=== PATIENT | female | born 1980 | race Caucasian/White ===

== ENCOUNTER 2017-02-23 07:28 | Emergency (ER) | payer OTHER ==
[2017-02-23] MEDS ORDERED: fentaNYL PF 100 MCG/2 ML VIAL IV PRN (08:00)
[2017-02-23] MEDS ORDERED: IV NORMAL SALINE 1,000ML 1,000 ML IV SCH (08:30)
[2017-02-23] MEDS ORDERED: ONDANSETRON PF 4 MG/2 ML VIAL. IV ONE (08:30)
--- NOTE | 2017-02-23 08:36 | PHYS DOC ---
Past History Past Medical History: Ovarian Cyst, Other Past Surgical History: Cholecystectomy, Other Smoking: Greater than 1 pack/day Alcohol Use: None Drug Use: None Adult General Chief Complaint Chief Complaint: ABDOMINAL PAIN HPI HPI Patient is a 36 year old female who presents with plain of right lower quadrant abdominal pain. Patient states her symptoms started this morning at approximately 0600. Patient states that she got sudden sharp pain in the right lower quadrant. Patient states that she feels pain into her right thigh associated with her symptoms. Patient denies previous history of similar symptoms. Patient states that her last menstrual period was approximately one week ago patient has had history of cholecystectomy but denies history of appendectomy. Patient has had associated nausea but denies vomiting, diarrhea, or fever. She has not taken any medications to help with her symptoms. Patient currently rates her pain as 8 out of 10. Review of Systems Review of Systems Constitutional: Denies fever or chills [] Eyes: Denies change in visual acuity, redness, or eye pain [] HENT: Denies nasal congestion or sore throat [] Respiratory: Denies cough or shortness of breath [] Cardiovascular: Denies chest pain or edema[] GI: Abdominal pain, nausea, denies vomiting, bloody stools or diarrhea [] : Denies abnormal vaginal bleeding, vaginal discharge, dysuria or hematuria [] Musculoskeletal: Denies back pain or joint pain [] Integument: Denies rash or skin lesions [] Neurologic: Denies headache, focal weakness or sensory changes [] Current Medications Current Medications Current Medications Medications (Trade) Dose Ordered Sig/Jesus Start Time Stop Time Status Last Admin Dose Admin Fentanyl Citrate (Fentanyl 2ml Vial) 50 mcg PRN Q15MIN PRN 02/23/17 08:00 02/24/17 07:59 Ondansetron HCl (Zofran) 4 mg 1X ONCE 02/23/17 08:30 02/23/17 08:31 DC Sodium Chloride 1,000 ml @ 1,000 mls/hr Q1H 02/23/17 08:30 02/23/17 09:29 Allergies Allergies Allergies Coded Allergies Type Severity Reaction Last Updated Verified diphenhydramine Allergy Mild 06/18/13 Yes latex Allergy 06/18/13 Yes promethazine Allergy 06/18/13 Yes red dye Allergy 06/18/13 Yes Physical Exam Physical Exam Constitutional: Alert, afebrile, appears in moderate discomfort. [] HENT: Normocephalic, atraumatic, bilateral external ears normal, oropharynx moist, no oral exudates, nose normal. [] Eyes: PERRLA, EOMI, conjunctiva normal, no discharge. [] Neck: Normal range of motion, no tenderness, supple, no stridor. [] Cardiovascular:Heart rate regular rhythm, no murmur [] Lungs & Thorax: Bilateral breath sounds clear to auscultation [] Abdomen: Bowel sounds normal, soft, suprapubic and right lower quadrant tenderness to palpation with guarding, no rebound tenderness, no masses, no pulsatile masses. [] Skin: Warm, dry, no erythema, no rash. [] Back: No tenderness, no CVA tenderness. [] Extremities: No tenderness, no cyanosis, no clubbing, ROM intact, no edema. [] Neurologic: Alert and oriented X 3, normal motor function, normal sensory function, no focal deficits noted. [] Current Patient Data Vital Signs Vital Signs Date Time Temp Pulse Resp B/P (MAP) Pulse Ox O2 Delivery O2 Flow Rate FiO2 02/23/17 07:28 97.5 75 16 99 Room Air EKG EKG Not performed[] Radiology/Procedures Radiology/[place] [address] IMAGING REPORT Signed PATIENT: AVELINO CHANDLER ACCOUNT: [id number] : 1980 LOCATION: ER AGE: 36 SEX: F EXAM STATUS: REG ER ORD. PHYSICIAN: KAMRAN MAJOR MD REASON: severe right lower quadrant and pelvic pain PROCEDURE: US PELVIS W/TV Ultrasound pelvis 02/23/2017 Indication: Right lower quadrant abdominal pain Comparison: None available Technique: Sonographic evaluation of the pelvis was performed utilizing transabdominal and transvaginal imaging. Grayscale, color Doppler and spectral waveform analysis was performed. Findings: The uterus measures 9.5 x 5.6 x 4.2 cm (length by with by AP dimension). Endometrium is within normal limits measuring up to 3 mm. Simple appearing nabothian cysts are present. No suspicious uterine masses are identified. Right ovary measures 2.4 x 1.9 x 2.7 cm. Left ovary measures 3.1 x 2.3 x 2.2 cm. Follicular changes are noted within the ovaries measuring up to 1.3 cm on the right and 1.3 cm in the left. Arterial and venous waveform was present in the ovaries bilaterally the time of imaging. No free fluid is identified within the pelvis. Results portions of the urinary bladder within normal limits. Impression: 1. Perfusion is noted to the ovaries bilaterally time of imaging. Normal ovaries are present. 2. No suspicious uterine masses are identified. 3. Simple appearing nabothian cysts are present. DICTATED AND SIGNED BY: RADHA WINN MD DATE: 02/23/17954 CC: KAMRAN MAJOR MD; JERILYN WATTERS MD ~ [place] [address] IMAGING REPORT Signed PATIENT: AVELINO CHANDLER ACCOUNT: [id number] : 1980 LOCATION: ER AGE: 36 SEX: F EXAM STATUS: REG ER ORD. PHYSICIAN: KAMRAN MAJOR MD REASON: nausea, right lower quadrant pain PROCEDURE: CT ABD PELV W/ IV CONTRST ONLY CT of the abdomen and pelvis with contrast, 02/23/2017: History: Right lower quadrant pain, nausea Multidetector CT imaging was performed following an IV bolus injection of iodinated contrast material. No oral contrast material was administered for the study. The gallbladder is surgically absent. There is a 9 mm low-density lesion in the superior aspect of the right lobe of the liver. It is likely a hemangioma or cyst, although it is too small to definitively characterize. No other hepatic lesion is seen. The pancreas is unremarkable. The spleen is of normal size. Two tiny intrarenal calculi are present in the upper pole of the right kidney. The largest of these measures 2 mm. There is no evidence of hydronephrosis. No ureteral calculus is identified. The partially filled urinary bladder is unremarkable. There is mild aortoiliac calcific plaquing without evidence of aneurysm. No abdominal or pelvic adenopathy is seen. The bowel loops are not dilated. A portion of the appendix is visualized and it is unremarkable. No pericecal inflammatory process is seen. No free air or significant free fluid is evident in the abdomen or pelvis. IMPRESSION: 1. Small nonobstructing right intrarenal calculi. 2. Single small hepatic lesion, too small to definitively characterize. Sonographic evaluation may be helpful. 3. No CT evidence of acute appendicitis. PQRS Compliance Statement: One or more of the following individualized dose reduction techniques were utilized for this examination: 1. Automated exposure control 2. Adjustment of the mA and/or kV according to patient size 3. Use of iterative reconstruction technique DICTATED AND SIGNED BY: DAREK PENA MD DATE: 02/23/17 1110 CC: KAMRAN MAJOR MD; JERILYN WATTERS MD ~ [] Course & Med Decision Making Course & Med Decision Making Pertinent Labs and Imaging studies reviewed. (See chart for details) Patient was started on IV fluids. The patient was offered fentanyl for pain but declined stating that her pain was improving on its own. The patient's imaging showed no evidence of appendicitis in no acute ovarian pathology. Etiology of patient's symptoms not definitely identified, however there does not appear to be an acute surgical process at this time. The patient is feeling better after treatment. The patient is appropriate for outpatient discharge. Advise follow- up in 2 days a primary doctor. I did speak with the patient regarding her CT findings and recommended repeat imaging in the next 2-3 weeks. Advised return to the emergency department for any worsening symptoms. Patient voiced understanding and in agreement with treatment plan. Dragon Disclaimer Dragon Disclaimer This chart was dictated in whole or in part using Voice Recognition software in a busy, high-work load, and often noisy Emergency Department environment. It may contain unintended and wholly unrecognized errors or omissions. Departure Departure: Impression: Primary Impression: Abdominal pain Disposition: 01 HOME, SELF-CARE Condition: IMPROVED Referrals: JERILYN WATTERS MD (PCP) Patient Instructions: Abdominal Pain Additional Instructions: Your emergency department workup was negative for any acute surgical cause for your symptoms today. It is recommended that she follow-up with your primary doctor in the next 2 days for reevaluation. Please return to the emergency department if you have worsening pain, or if you develop fever, vomiting, bloody stools, or any other worrisome symptoms. Scripts Ondansetron (ZOFRAN ODT) 4 Mg Tab.rapdis 1 TAB SL Q8HRS Y for NAUSEA/VOMITING, #15 TAB Prov: KAMRAN MAJOR MD 02/23/17 Problem Qualifiers Primary Impression: Abdominal pain Abdominal location: right lower quadrant Qualified Codes: R10.31 - Right lower quadrant pain KAMRAN MAJOR MD Feb 23, 2017 08:36
[2017-02-23 08:39] LABS: BASO # 0.1 x10^3/uL (0.0-0.2); BASO % 1 % (0-3); EOS # 0.3 x10^3/uL (0.0-0.7); EOS % 4 % (0-3); HEMOGLOBIN 14.7 g/dL (12.0-15.5); LYMPH # 2.4 x10^3/uL (1.0-4.8); LYMPH % 33 % (24-48); MEAN CORPUSCULAR HEMOGLOBIN 32 pg (25-35); MEAN CORPUSCULAR HGB CONC 35 g/dL (31-37); MEAN CORPUSCULAR VOLUME 92 fL (79-100); MONO # 0.6 x10^3/uL (0.0-1.1); MONO % 9 % (0-9); NEUT # 3.8 x10^3uL (1.8-7.7); NEUT % 54 % (31-73); PLATELET COUNT 252 x10^3/uL (140-400); RED BLOOD COUNT 4.54 x10^6/uL (3.50-5.40); RED CELL DISTRIBUTION WIDTH 13.4 % (11.5-14.5); WHITE BLOOD COUNT 7.1 x10^3/uL (4.0-11.0)
[2017-02-23 08:52] LABS: ALBUMIN 3.5 g/dL (3.4-5.0); ALBUMIN/GLOBULIN RATIO 1.1 (1.0-1.7); CALCIUM 8.3 mg/dL (8.5-10.1); CREATININE 0.9 mg/dL (0.6-1.0); GFR 70.5; POTASSIUM 3.5 mmol/L (3.5-5.1); TOTAL BILIRUBIN 0.4 mg/dL (0.2-1.0); TOTAL PROTEIN 6.6 g/dL (6.4-8.2)
--- NOTE | 2017-02-23 10:00 | RAD ---
Ultrasound pelvis 02/23/2017 Indication: Right lower quadrant abdominal pain Comparison: None available Technique: Sonographic evaluation of the pelvis was performed utilizing transabdominal and transvaginal imaging. Grayscale, color Doppler and spectral waveform analysis was performed. Findings: The uterus measures 9.5 x 5.6 x 4.2 cm (length by with by AP dimension). Endometrium is within normal limits measuring up to 3 mm. Simple appearing nabothian cysts are present. No suspicious uterine masses are identified. Right ovary measures 2.4 x 1.9 x 2.7 cm. Left ovary measures 3.1 x 2.3 x 2.2 cm. Follicular changes are noted within the ovaries measuring up to 1.3 cm on the right and 1.3 cm in the left. Arterial and venous waveform was present in the ovaries bilaterally the time of imaging. No free fluid is identified within the pelvis. Results portions of the urinary bladder within normal limits. Impression: 1. Perfusion is noted to the ovaries bilaterally time of imaging. Normal ovaries are present. 2. No suspicious uterine masses are identified. 3. Simple appearing nabothian cysts are present.
[2017-02-23 10:31] LABS: BACTERIA,URINE FEW /HPF (0-FEW); BILIRUBIN,URINE NEG (NEG); CLARITY,URINE HAZY; COLOR,URINE STRAW; GLUCOSE,URINE NEG (NEG); NITRITE,URINE NEG (NEG); UROBILINOGEN,URINE 0.2 mg/dL (0.2 mg/dL); WBC,URINE 1.4 /HPF (0-4)
[2017-02-23 10:34] LABS: SQUAMOUS EPITHELIAL CELL,UR MOD /LPF
[2017-02-23] MEDS ORDERED: IOHEXOL 300 MG/ML 75 ML VIAL. IV ONE (10:45)
--- NOTE | 2017-02-23 11:27 | RAD ---
CT of the abdomen and pelvis with contrast, 02/23/2017: History: Right lower quadrant pain, nausea Multidetector CT imaging was performed following an IV bolus injection of iodinated contrast material. No oral contrast material was administered for the study. The gallbladder is surgically absent. There is a 9 mm low-density lesion in the superior aspect of the right lobe of the liver. It is likely a hemangioma or cyst, although it is too small to definitively characterize. No other hepatic lesion is seen. The pancreas is unremarkable. The spleen is of normal size. Two tiny intrarenal calculi are present in the upper pole of the right kidney. The largest of these measures 2 mm. There is no evidence of hydronephrosis. No ureteral calculus is identified. The partially filled urinary bladder is unremarkable. There is mild aortoiliac calcific plaquing without evidence of aneurysm. No abdominal or pelvic adenopathy is seen. The bowel loops are not dilated. A portion of the appendix is visualized and it is unremarkable. No pericecal inflammatory process is seen. No free air or significant free fluid is evident in the abdomen or pelvis. IMPRESSION: 1. Small nonobstructing right intrarenal calculi. 2. Single small hepatic lesion, too small to definitively characterize. Sonographic evaluation may be helpful. 3. No CT evidence of acute appendicitis. PQRS Compliance Statement: One or more of the following individualized dose reduction techniques were utilized for this examination: 1. Automated exposure control 2. Adjustment of the mA and/or kV according to patient size 3. Use of iterative reconstruction technique
[2017-02-23] MEDS ORDERED: ONDA4TAB10 SL (12:18)
[2017-02-23 12:25] VITALS: BP 114/68
== END 2017-02-23 12:25 | disposition home or self-care (01) ==
LOC: ER 07:28
DX: R10.31 Right lower quadrant pain (principal); R11.0 Nausea; F17.200 Nicotine dependence, unspecified, uncomplicated; Z90.49 Acquired absence of other specified parts of digestive tract; Z88.4 Allergy status to anesthetic agent; Z91.041 Radiographic dye allergy status; Z91.040 Latex allergy status
CPT/HCPCS: 36415; 74177; 76830; 76856; 80053; 81001; 81025; 83690; 85025; 96361; 96374; 99285; J2405; Q9967; J7030

== ENCOUNTER 2021-09-06 18:52 | Emergency (ER) | payer SELFPAY ==
[~2021-09-06] VITALS: Ht 165.1 cm; Wt 59.1 kg
[~2021-09-06 18:52] MED LIST: ONDA4TAB10 SL
--- NOTE | 2021-09-06 19:04 | PHYS DOC ---
Past History Past Medical History: Ovarian Cyst, Other Past Surgical History: Cholecystectomy, Other Smoking: Greater than 1 pack/day Alcohol Use: None Drug Use: None General Adult EDM: Chief Complaint: ABDOMINAL PAIN HPI: HPI: ".. I am have really bad abdomen pain " ".. Here on the Rt.. " " It is really severe sometimes.." Patient is a 41 year old female who presents with above hx and complaints of severe right flank and right abdomen pain. States the pain started today at times pain is almost incapacitating. Patient states it starts at her right flank and radiates to her groin area. Patient denies any trauma. Patient denies any vaginal discharge or dysuria. Patient does state it does feel like she has to urinate when the pain starts. No history immunosuppression. No history specific ill contacts. No history of bad food. No history of travel. Has had a cholecystectomy. Has had some history of dysmenorrhea and possible ov ju cyst. Pt. follows with Dr. Dewey. Review of Systems: Review of Systems: Constitutional: Denies fever or chills Eyes: Denies change in visual acuity HENT: Denies nasal congestion or sore throat Respiratory: Denies cough or shortness of breath Cardiovascular: Denies chest pain or edema GI: Complains of right sided abdominal pain, nausea,. Vomiting, bloody stools or diarrhea : Denies dysuria Musculoskeletal: Complains of right flank back pain Integument: Denies rash Neurologic: Denies headache, focal weakness or sensory changes Endocrine: Denies polyuria or polydipsia Lymphatic: Denies swollen glands Psychiatric: Denies depression or anxiety Family History: Family History: Noncontributory to presentation Current Medications: Current Meds: See nursing for home meds Allergies: Allergies: Allergies Coded Allergies Type Severity Reaction Last Updated Verified diphenhydramine Allergy Mild 06/18/13 Yes latex Allergy 06/18/13 Yes promethazine Allergy 06/18/13 Yes red dye Allergy 06/18/13 Yes Physical Exam: PE: Constitutional: in acute distress, non-toxic appearance. [] HENT: Normocephalic, atraumatic, bilateral external ears normal, oropharynx moist, no oral exudates, nose normal. [] Eyes: PERRLA, EOMI, conjunctiva normal, no discharge. [] Neck: Normal range of motion, no tenderness, supple, no stridor. [] Cardiovascular:Heart rate regular rhythm, no murmur [] Lungs & Thorax: Bilateral breath sounds clear to auscultation [] Abdomen: Bowel sounds decreased, soft, right flank, mid and lower right tenderness, no masses, no pulsatile masses. Distended. Mild rebound right flank. Old surgery scar Skin: Warm, dry, no erythema, no rash. [] Back: No tenderness, no CVA tenderness. [] Extremities: No tenderness, no cyanosis, no clubbing, ROM intact, no edema. No true psoas sign Neurologic: Alert and oriented X 3, normal motor function, normal sensory function, no focal deficits noted. [] Psychologic: Affect anxious, judgement normal, mood normal. [] EKG: EKG: My interpretation EKG shows a sinus rhythm at 69 bpm. No acute morphology. Time of EKG is 1931 hrs. [] Radiology/Procedures: Radiology/Procedures: [][place] [address] IMAGING REPORT Signed PATIENT: AVELINO CHANDLER ACCOUNT: [id number] : 1980 LOCATION: ER AGE: 41 SEX: F EXAM STATUS: REG ER ORD. PHYSICIAN: MARY GRACE SCRUGGS MD REASON: Severe lower abdomen pain PROCEDURE: ACUTE ABDOMEN SERIES Exam: Acute abdominal series INDICATION: Severe lower abdominal pain TECHNIQUE: Frontal view of the chest with upright and supine views the abdomen Comparisons: CT same day FINDINGS: The cardiomediastinal silhouette and pulmonary vessels are within normal limits. The lung and pleural spaces are clear. Air and stool noted throughout the colon to level the rectum in a nonobstructive bowel gas pattern. No suspicious masses or ulcerations. Visualized osseous structures are unremarkable. IMPRESSION: 1. No acute cardiopulmonary process. 2. Nonobstructive bowel gas pattern. Electronically signed by: Heather Bush MD (09/06/2021 10:25 PM) [facility] DICTATED AND SIGNED BY: HEATHER BUSH MD DATE: 09/06/212223 CC: MARY GRACE SCRUGGS MD; JERILYN DEWEY MD ~ SEX: F EXAM STATUS: REG ER ORD. PHYSICIAN: MARY GRACE SCRUGGS MD REASON: Severe lower abdomen pain Hx: Cholecystectomy Omni 300 75cc PROCEDURE: CT ABD PELV W/ORAL&IV CONTRAST Exam Date: 09/06/2021 9:[address] ABDOMEN+PELVIS W Indication: Reason: Severe lower abdomen pain Hx: Cholecystectomy Omni 300 75cc / Spl. Instructions: / History: . TECHNIQUE: CT examination of the abdomen and pelvis was performed following the administration of oral and nonionic intravenous contrast. One or more of the following dose reduction techniques were utilized: *Automated exposure control (AEC) *Adjustment of mA and/or kV according to patient size *Use of iterative reconstruction technique *CT scan done according to ALARA, or ALARA/IMAGE GENTLY COMPARISON: February 23, 2017 FINDINGS: The visualized lung bases are clear. Status post cholecystectomy. There is a 5 mm calculus at the right ureterovesicular junction resulting in moderate hydroureteronephrosis. There is a 4 mm nonobstructing right renal calculus. No left hydronephrosis. The liver, spleen, pancreas, adrenal glands and kidneys are otherwise normal. Urinary bladder is normal in appearance. There are bilateral adnexal cysts measuring up to 1.9 cm on the right and 2.4 cm on the left. There is no bowel obstruction or inflammation. No evidence for acute appendicitis. Mild atherosclerotic calcifications are seen. No lymphadenopathy or ascites is seen. Degenerative changes are seen in the spine. IMPRESSION: 5 mm right UVJ calculus resulting in moderate hydroureteronephrosis. Additional nonobstructing right renal calculus noted. Bilateral adnexal cysts noted. Electronically signed by: Ender Cramer MD (09/06/2021 10:15 PM) [facility] DICTATED AND SIGNED BY: ENDER CRAMER MD DATE: 09/06/213 CC: MARY GRACE SCRUGGS MD; JERILYN DEWEY MD ~ Heart Score: C/O Chest Pain: N/A Risk Factors: Risk Factors: DM, Current or recent (<one month) smoker, HTN, HLP, family history of CAD, obesity. Risk Scores: Score 0 - 3: 2.5% MACE over next 6 weeks - Discharge Home Score 4 - 6: 20.3% MACE over next 6 weeks - Admit for Clinical Observation Score 7 - 10: 72.7% MACE over next 6 weeks - Early Invasive Strategies Course & Med Decision Making: Course & Med Decision Making Pertinent Labs and Imaging studies reviewed. (See chart for details) Patient push fluids. Clear fluid diet if he is nauseated. Take Zofran 8 mg at 4 times a day for active vomiting. Take Tylenol and ibuprofen for pain. Take Flomax 0.4 mg daily while passing stone. Save stone if passed. Follow-up with primary care. If you do not have a urologist follow-up with . Impression: 1. Abdomen Pain 2. Distal 5mm Kidney stone at UVJ and moderated hydroureter 3. Bilateral renal cysts 4. Drug-seeking positive for meth [] Dragon Disclaimer: Dragon Disclaimer: This electronic medical record was generated, in whole or in part, using a voice recognition dictation system. Departure Departure: Referrals: JERILYN DEWEY MD (PCP) Scripts Ondansetron (ONDANSETRON ODT) 8 Mg Tab.rapdis 8 MG PO QIDPRN PRN for NAUSEA/VOMITING, #30 TAB Prov: MARY GRACE SCRUGGS MD 09/06/21 Hydrocodone/Ibuprofen (HYDROCODONE-IBUPROFEN 7.5-200 ) 1 Each Tablet 1 TAB PO PRN Q6HRS PRN for PAIN, #30 TAB 0 Refills Prov: MARY GRACE SCRUGGS MD 09/06/21 Tamsulosin Hcl (FLOMAX) 0.4 Mg Cap.er.24h 0.4 MG PO DAILY06 for renal colic, #30 CAP.SR Prov: MARY GRACE SCRUGGS MD 09/06/21 Dragon Disclaimer This chart was dictated in whole or in part using Voice Recognition software in a busy, high-work load, and often noisy Emergency Department environment. It may contain unintended and wholly unrecognized errors or omissions. Dragon Disclaimer This chart was dictated in whole or in part using Voice Recognition software in a busy, high-work load, and often noisy Emergency Department environment. It may contain unintended and wholly unrecognized errors or omissions. MARY GRACE SCRUGGS MD Sep 06, 2021 19:04
[2021-09-06 19:08] VITALS: BP 161/91
[2021-09-06] MEDS ORDERED: FAMOTIDINE 20 MG/2 ML VIAL IVP ONE (19:15)
[2021-09-06] MEDS ORDERED: KETOROLAC 30 MG/ML VIAL. IVP ONE (19:15)
[2021-09-06] MEDS ORDERED: IV RINGERS SOLUTION,LACTATED 1,000 ML IV SCH (19:15)
[2021-09-06] MEDS ORDERED: ONDANSETRON PF 4 MG/2 ML VIAL. IVP ONE ×2 (19:15→23:15)
[2021-09-06 19:59] LABS: BASO # 0.1 x10^3/uL (0.0-0.2); BASO % 1 % (0-3); EOS # 0.1 x10^3/uL (0.0-0.7); EOS % 1 % (0-3); HEMATOCRIT 40.2 % (36.0-47.0); HEMOGLOBIN 13.5 g/dL (12.0-15.5); LYMPH # 2.1 x10^3/uL (1.0-4.8); LYMPH % 27 % (24-48); MEAN CORPUSCULAR HEMOGLOBIN 32 pg (25-35); MEAN CORPUSCULAR HGB CONC 34 g/dL (31-37); MEAN CORPUSCULAR VOLUME 94 fL (79-100); MONO # 0.6 x10^3/uL (0.0-1.1); MONO % 7 % (0-9); NEUT # 5.1 x10^3uL (1.8-7.7); NEUT % 64 % (31-73); PLATELET COUNT 260 x10^3/uL (140-400); RED BLOOD COUNT 4.28 x10^6/uL (3.50-5.40); RED CELL DISTRIBUTION WIDTH 13.7 % (11.5-14.5)
[2021-09-06 20:02] LABS: ANION GAP 8 (6-14); BLOOD UREA NITROGEN 10 mg/dL (7-20); CALCIUM 8.7 mg/dL (8.5-10.1); CARBON DIOXIDE 25 mmol/L (21-32); CHLORIDE 102 mmol/L (98-107); CREATININE 0.7 mg/dL (0.6-1.0); GFR 91.8; GLUCOSE 87 mg/dL (70-99); POTASSIUM 3.9 mmol/L (3.5-5.1); SODIUM 135 mmol/L (136-145)
[2021-09-06 20:08] LABS: ALBUMIN 3.6 g/dL (3.4-5.0); ALK PHOS 67 U/L (46-116); ALT (SGPT) 16 U/L (14-59); AMYLASE 43 U/L (25-115); AST (SGOT) 12 U/L (15-37); LIPASE 82 U/L (73-393); TOTAL BILIRUBIN 0.1 mg/dL (0.2-1.0); TOTAL PROTEIN 6.5 g/dL (6.4-8.2)
[2021-09-06 20:11] LABS: DIRECT BILIRUBIN < 0.1 mg/dL (0.0-0.2)
[2021-09-06] MEDS ORDERED: IOHEXOL 240 MG/ML 50ML VIAL. ONE (20:22)
[2021-09-06 20:29] LABS: BARBITURATES NEG (NEG); BENZODIAZEPINES NEG (NEG); CANNABINOIDS NEG (NEG); COCAINE NEG (NEG); METHADONE NEG (NEG); OPIATES NEG (NEG); PHENCYCLIDINE NEG (NEG)
[2021-09-06 20:33] LABS: AMPHETAMINE/METHAMPHETAMINE POS (NEG); BACTERIA,URINE 0 /HPF (0-FEW); CLARITY,URINE CLEAR; COLOR,URINE YELLOW; GLUCOSE,URINE NEG (NEG); NITRITE,URINE NEG (NEG); SQUAMOUS EPITHELIAL CELL,UR MANY /LPF; UROBILINOGEN,URINE 0.2 mg/dL (0.2 mg/dL); WBC,URINE 0 /HPF (0-4)
[2021-09-06] MEDS ORDERED: IOHEXOL 300 MG/ML 75 ML VIAL. IV ONE (21:00)
[2021-09-06] MEDS ORDERED: MORPHINE SULFATE 10 MG/ML SYRINGE. SQ ONE (21:15)
[2021-09-06] MEDS ORDERED: CONTRAST GIVEN. MC PRN (21:15)
--- NOTE | 2021-09-06 21:35 | EKG ---
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
--- NOTE | 2021-09-06 22:17 | RAD ---
Exam Date: 09/06/2021 9:[address] ABDOMEN+PELVIS W Indication: Reason: Severe lower abdomen pain Hx: Cholecystectomy Omni 300 75cc / Spl. Instructions: / History: . TECHNIQUE: CT examination of the abdomen and pelvis was performed following the administration of or al and nonionic intravenous contrast. One or more of the following dose reduction techniques were ut ilized: *Automated exposure control (AEC) *Adjustment of mA and/or kV according to patient size *Use of iterative reconstruction technique *CT scan done according to ALARA, or ALARA/IMAGE GENTLY COMPARISON: February 23, 2017 FINDINGS: The visualized lung bases are clear. Status post cholecystectomy. There is a 5 mm calculus at the right ureterovesicular junction resulti ng in moderate hydroureteronephrosis. There is a 4 mm nonobstructing right renal calculus. No left hydronephrosis. The liver, spleen, pancreas, adrenal glands and kidneys are otherwise normal. Urinary bladder is normal in appearance. There are bilateral adnexal cysts measuring up to 1.9 cm on the right and 2.4 cm on the left. There is no bowel obstruction or inflammation. No evidence for acute appendicitis. Mild atherosclerotic calcifications are seen. No lymphadenopathy or ascites is seen. Degenerative changes are seen in the spine. IMPRESSION: 5 mm right UVJ calculus resulting in moderate hydroureteronephrosis. Additional nonobstructing right renal calculus noted. Bilateral adnexal cysts noted. Electronically signed by: Babar Cramer MD (09/06/2021 10:15 PM) [facility]
--- NOTE | 2021-09-06 22:28 | RAD ---
Exam: Acute abdominal series INDICATION: Severe lower abdominal pain TECHNIQUE: Frontal view of the chest with upright and supine views the abdomen Comparisons: CT same day FINDINGS: The cardiomediastinal silhouette and pulmonary vessels are within normal limits. The lung and pleural spaces are clear. Air and stool noted throughout the colon to level the rectum in a nonobstructive bowel gas pattern. No suspicious masses or ulcerations. Visualized osseous structures are unremarkable. IMPRESSION: 1. No acute cardiopulmonary process. 2. Nonobstructive bowel gas pattern. Electronically signed by: Heather Junior MD (09/06/2021 10:25 PM) [facility]
[2021-09-06] MEDS ORDERED: TAMSULOSIN 0.4 MG CAP.ER.24H. PO ONE (23:15)
[2021-09-06] MEDS ORDERED: ONDA8TAB15 PO (23:56)
[2021-09-06] MEDS ORDERED: HYDR-1179 PO (23:56)
[2021-09-06] MEDS ORDERED: TAMS0.4C97 PO (23:56)
== END 2021-09-07 00:05 | disposition home or self-care (01) ==
LOC: ER 18:52
DX: N13.2 Hydronephrosis with renal and ureteral calculous obstruction (principal); F17.200 Nicotine dependence, unspecified, uncomplicated; F15.10 Other stimulant abuse, uncomplicated; Z90.49 Acquired absence of other specified parts of digestive tract; Z91.041 Radiographic dye allergy status; Z91.040 Latex allergy status; Z88.8 Allergy status to other drugs, medicaments and biological substances
CPT/HCPCS: 36415; 74022; 74177; 80048; 80076; 80307; 81001; 81025; 82150; 82550; 83690; 84484; 85025; 85610; 85730; 93005; 96361; 96372; 96374; 96375; 99285; J1885; J2270; J2405; J3490; J7120; Q9967